=== PATIENT | female | born 1970 | race Caucasian/White ===

== ENCOUNTER 2021-06-20 11:42 | Day surgery (SDC) | payer OTHER ==
[~2021-06-20] VITALS: Ht 157.5 cm; Wt 59.6 kg
[~2021-06-20 11:42] MED LIST: HYDACE5 PO; NAPR500 PO
--- NOTE | 2021-06-20 12:17 | NUR ---
PT ADMITTED TO [facility]. AGREES WITH PLANNED SURGERY. LUNG SOUNDS CLEAR.
--- NOTE | 2021-06-20 13:30 | NUR ---
06/20/21 1330 Lorena Buitrago NO PREOP ANTIBIOTICS ORDERED PER .
--- NOTE | 2021-06-20 14:14 | NUR ---
PT TOLERATING PO FLUIDS. RIDE INFORMED OF STATUS.
--- NOTE | 2021-06-20 15:01 | NUR ---
Discharge instructions reviewed with patient. Patient verbalizes understanding. Copy given to patient to take home. Patient States Post-Procedure ride home has been arranged. Discharged via wheelchair to private car for ride home.
== END 2021-06-20 15:04 | disposition home or self-care (01) ==
LOC: ORSCMMR 11:42 → ORD 13:00 → ORSCMMR 15:04
PROVIDERS: Obstetrics & Gynecology
PROC: 0U5B8ZZ Destruction of Endometrium, Via Natural or Artificial Opening Endoscopic (ICD-10-PCS; principal; 2021-06-20 13:00)
DX: N92.0 Excessive and frequent menstruation with regular cycle (principal); D50.9 Iron deficiency anemia, unspecified; Z87.891 Personal history of nicotine dependence
CPT/HCPCS: J1885; J2250; J2405; J2704; J2765; J3010; J7120